=== PATIENT | female | born 1985 | race Caucasian/White ===

== ENCOUNTER 2021-08-29 20:20 | Observation (INO) | payer SELFPAY ==
[~2021-08-29 20:20] MED LIST: Iopamidol-370 76% 500 ML 1 ML ONE
[2021-08-29 20:44] LABS: #Basophils 0.1 thou/uL (0.0-0.2); #Lymphocytes 1.3 thou/uL (1.20-3.40); #Monocytes 1.2 thou/uL (0.11-0.59); #Neutrophils 12.3 thou/uL (1.40-6.50); %Basophils 0.4 % (0.0-1.0); %Eosinophils 0.2 % (0.0-10.0); %Lymphocytes 8.9 % (21.0-51.0); %Monocytes 7.8 % (0.0-10.0); %Neutrophils 82.8 % (42.0-75.0); Hemoglobin 13.5 g/dL (12.0-16.0); Mean Corpuscular HGB CONC 33.4 g/dL (32.0-36.0); Mean Corpuscular Hemoglobin 30.9 pg (27.0-31.0); Mean Corpuscular Volume 92.3 fL (78.0-98.0); Mean Platelet Volume 7.3 fL (7.4-10.4); Platelet Count 225 thou/uL (130-400); RBC Distribution Width 11.7 % (11.5-14.5); Red Blood Cell (RBC) Count 4.38 mill/uL (4.20-5.40); White Blood Cell (WBC) Count 14.9 thou/uL (4.8-10.8)
[2021-08-29 20:47] LABS: Bilirubin Negative (Negative); Blood, Urine Negative (Negative); Clarity Clear (Clear); Glucose, Urine (Dipstick) Normal (Negative); Ketone, Urine Negative (Negative); Leukocyte Negative Leu/uL (Negative); Nitrite Negative (Negative); Protein, Urine (Dipstick) Negative (Neg-Trace); Specific Gravity, Urine 1.013 (1.002-1.036); Urobilinogen Normal mg/dL (Less than 2); pH, Urine 6.5 (5.0-9.0)
[2021-08-29 20:49] LABS: Pregnancy Test - Urine (BHCG) Negative (Negative); Pregu Control Background? CLEAR/WHITE (CLR/WHITE); Pregu Control Bar Appear? YES (CONTROL BAR); Specific Gravity 1.013 (1.002-1.036)
[2021-08-29 20:50] LABS: BHCG - Serum Negative (NEGATIVE); Pregs Control Background? CLEAR/WHITE (CLR/WHITE); Pregs Control Bar Appear? YES (CONTROL BAR)
[2021-08-29 20:58] LABS: ALT (SGPT) 21 U/L (8-55); AST (SGOT) 15 U/L (5-34); Albumin 4.4 g/dL (3.5-5.0); Alkaline Phosphatase 51 U/L (40-110); Anion Gap 12 mmol/L (10-20); BUN (Urea Nitrogen) 7 mg/dL (7.0-18.7); Bilirubin, Total 0.8 mg/dL (0.2-1.2); Calc. Creatinine Clearance 0 mL/min (70-130); Calcium 9.1 mg/dL (7.8-10.44); Carbon Dioxide 23 mmol/L (22-29); Chloride 104 mmol/L (98-107); Globulin 3.1 g/dL (2.4-3.5); Glucose 110 mg/dL (70-105); Lipase 17 U/L (8-78); Potassium 3.6 mmol/L (3.5-5.1); Protein, Total 7.5 g/dL (6.0-8.3); Sodium 135 mmol/L (136-145)
[2021-08-30] MEDS ORDERED: Piperacillin/Tazobactam 3.375 GM VIAL ONE (00:58)
[2021-08-30] MEDS ORDERED: Ondansetron PF 4 MG/2 ML Vial ONE ×2 (00:58→13:58)
[2021-08-30 03:56] VITALS: BMI 23.5
[2021-08-30 03:58] LABS: SARS-CoV-2 NAA Rapid Test Not Detected (NotDetected)
[2021-08-30] MEDS ORDERED: Morphine 4 MG/ML VIAL SLOW IVP PRN (07:07)
[2021-08-30] MEDS ORDERED: Ondansetron ODT 4 MG TAB PO PRN (07:08)
[2021-08-30] MEDS ORDERED: Ondansetron PF 4 MG/2 ML Vial IVP PRN (07:08)
[2021-08-30] MEDS ORDERED: Lactated Ringer's 1,000 ML IV SCH (07:15)
[2021-08-30] MEDS ORDERED: Piperacillin/Tazobactam 3.375 GM in Sodium Chloride 0.9% 100 ML IVPB SCH (09:00)
[2021-08-30] MEDS ORDERED: Fentanyl 100 MCG/2 ML VIAL ONE ×2 (13:37→15:05)
[2021-08-30] MEDS ORDERED: Bupivacaine 0.25% 10 ML VIAL ONE (13:38)
[2021-08-30] MEDS ORDERED: EPINEPHrine 1 MG/ML AMP ONE (13:38)
[2021-08-30] MEDS ORDERED: PROPOFOL 200 MG/20 ML VIAL ONE (13:58)
[2021-08-30] MEDS ORDERED: Rocuronium Bromide 10 MG/ML (10ML VIAL) ONE (13:58)
[2021-08-30] MEDS ORDERED: Esmolol 100 MG/10 ML VIAL ONE (13:58)
[2021-08-30] MEDS ORDERED: diphenhydrAMINE 50 MG/ML VIAL ONE (13:58)
[2021-08-30] MEDS ORDERED: Ketorolac Tromethamine 30 MG/ML VIAL ONE (13:58)
[2021-08-30] MEDS ORDERED: Dexamethasone 20 MG/5 ML VIAL ONE (13:58)
[2021-08-30] MEDS ORDERED: Glycopyrrolate 0.2 MG/ML 5 ML SYRINGE ONE (13:58)
[2021-08-30] MEDS ORDERED: Lidocaine 1% PF 5 ML VIAL ONE (13:58)
[2021-08-30] MEDS ORDERED: traMADol HCl 50 MG TAB PO PRN (15:20)
[2021-08-30 16:43] VITALS: TEMP 97.4
[2021-08-30 19:58] VITALS: BP 101/67
[2021-08-30] MEDS ORDERED: Amoxicillin/Potassium Clav 875 MG TAB PO SCH (21:00)
[2021-08-31] MEDS ORDERED: Saccharomyces boulardii 250 MG CAP PO SCH (09:00)
== END 2021-08-30 18:30 | disposition home or self-care (01) ==
LOC: ERS 20:20 → SURG B 08-30 00:34
PROVIDERS: ADMIT Specialist; ATTEND Surgery
PROC: 0DTJ4ZZ Resection of Appendix, Percutaneous Endoscopic Approach (ICD-10-PCS; principal; 2021-08-30)
DX: K35.32 Acute appendicitis with perforation, localized peritonitis, and gangrene, without abscess (principal); K66.0 Peritoneal adhesions (postprocedural) (postinfection); N94.9 Unspecified condition associated with female genital organs and menstrual cycle; N20.0 Calculus of kidney; Z20.822 Contact with and (suspected) exposure to COVID-19
CPT/HCPCS: 36415; 36416; 74177; 80053; 81003; 81025; 83690; 84703; 85025; 88304; 94760; 96365; J0171; J1100; J1200; J1885; J2405; J2543; J2704; J3010; J3490; Q9967; S0020; U0002